=== PATIENT | male | born 1980 | race African-American/Black ===

== ENCOUNTER 2019-04-20 14:06 | Emergency (ER) | payer SELFPAY | END 2019-04-20 16:32 | disposition home or self-care (01) | LOC: ERS 14:06 | DX: K64.4 Residual hemorrhoidal skin tags (principal); Z71.6 Tobacco abuse counseling | CPT/HCPCS: 99406 ==

== ENCOUNTER 2019-07-07 09:58 | Emergency (ER) | payer SELFPAY ==
[2019-07-07] MEDS ORDERED: Ketorolac Tromethamine 30 MG/ML VIAL ONE (10:57)
== END 2019-07-07 11:24 | disposition home or self-care (01) ==
LOC: ERS 09:58
DX: K64.4 Residual hemorrhoidal skin tags (principal); I10 Essential (primary) hypertension; F17.210 Nicotine dependence, cigarettes, uncomplicated
CPT/HCPCS: 96372; 99283; J1885

== ENCOUNTER 2019-08-07 19:08 | Emergency (ER) | payer SELFPAY ==
[2019-08-07 20:34] LABS: Syphilis Antibody Nonreactive (Nonreactive); Syphilis Antibody Index 0.05 S/CO (<1.00 Non-Reactive)
== END 2019-08-07 20:49 | disposition home or self-care (01) ==
LOC: ERS 19:08
DX: L30.9 Dermatitis, unspecified (principal); E03.9 Hypothyroidism, unspecified; I10 Essential (primary) hypertension; F17.210 Nicotine dependence, cigarettes, uncomplicated
CPT/HCPCS: 36415; 86780; 99281

== ENCOUNTER 2020-04-04 12:27 | Emergency (ER) | payer SELFPAY ==
--- NOTE | 2020-04-04 14:50 | CT ---
CT LUMBAR SPINE WITHOUT CONTRAST: Indications: Low back pain. Difficulty walking. FINDINGS: Lumbar vertebrae maintain normal height and alignment. There is no evidence of spondylolisthesis or s pondylolysis. The disc spaces are normally preserved throughout the lumbar spine. L1-2: No significant disc bulge. No central canal or foraminal stenosis. L2-3: Mild disc bulge. No central canal or foraminal stenosis. L3-4: Mild disc bulge abuts the thecal sac. Mild facet hypertrophy. Mild central canal stenosis. L4-5: Mild disc bulge. Mild facet arthrosis and hypertrophy. Mild central canal stenosis. L5-S1: Mild disc bulge. Congenitially smaller thecal sac. No significant central canal or foraminal s tenosis. IMPRESSION: No evidence of significant disc bulge or protrusion. 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 POS: AGW
[2020-04-04] MEDS ORDERED: HYDROcodone/Acetaminophen 5/325 mg Tablet ONE (15:39)
[2020-04-04] MEDS ORDERED: Azithromycin 250 MG TAB ONE (15:41)
[2020-04-04] MEDS ORDERED: Ketorolac Tromethamine 30 MG/ML VIAL ONE (15:41)
[2020-04-04] MEDS ORDERED: cefTRIAXone\\ROCEPHIN 250 MG VIAL ONE (15:41)
[2020-04-04] MEDS ORDERED: Lidocaine 1% PF 5 ML VIAL ONE (15:41)
[2020-04-04 16:16] LABS: Bacteria/HPF None Seen HPF (None Seen); Bilirubin Negative (Negative); Blood, Urine Negative (Negative); Clarity Clear (Clear); Glucose, Urine (Dipstick) Normal (Negative); Leukocyte 75 Leu/uL (Negative); Nitrite Negative (Negative); Protein, Urine (Dipstick) Negative (Neg-Trace); RBC/HPF 0-3 HPF (0-3); Squamous Epithelial 0-3 HPF (0-3)
[2020-04-05 21:12] LABS: Chlam.trachomatis by PCR,Urine DETECTED (NotDetected)
== END 2020-04-04 17:32 | disposition home or self-care (01) ==
LOC: ERS 12:27
DX: M46.1 Sacroiliitis, not elsewhere classified (principal); E03.9 Hypothyroidism, unspecified; I10 Essential (primary) hypertension; F17.210 Nicotine dependence, cigarettes, uncomplicated; Z79.899 Other long term (current) drug therapy
CPT/HCPCS: 72131; 81003; 81015; 87491; 87591; 96372; J0696; J1885; J2001

== ENCOUNTER 2020-04-29 14:47 | Emergency (ER) | payer SELFPAY ==
[2020-04-29 16:28] LABS: Bacteria/HPF None Seen HPF (None Seen); Bilirubin Negative (Negative); Blood, Urine Negative (Negative); Clarity Clear (Clear); Glucose, Urine (Dipstick) Normal (Negative); Ketone, Urine Negative (Negative); Leukocyte 25 Leu/uL (Negative); Nitrite Negative (Negative); Protein, Urine (Dipstick) Negative (Neg-Trace); RBC/HPF 0-3 HPF (0-3); Specific Gravity, Urine 1.017 (1.002-1.036); Squamous Epithelial 0-3 HPF (0-3); Urobilinogen Normal mg/dL (Less than 2); WBC/HPF 0-3 HPF (0-3); pH, Urine 6.5 (5.0-9.0)
[2020-04-30 16:06] LABS: Chlam.trachomatis by PCR,Urine Not Detected (NotDetected)
== END 2020-04-29 18:22 | disposition home or self-care (01) ==
LOC: ERS 14:47
DX: M54.16 Radiculopathy, lumbar region (principal); M79.89 Other specified soft tissue disorders; M25.532 Pain in left wrist; E03.9 Hypothyroidism, unspecified; I10 Essential (primary) hypertension; F17.210 Nicotine dependence, cigarettes, uncomplicated; Z20.2 Contact with and (suspected) exposure to infections with a predominantly sexual mode of transmission
CPT/HCPCS: 81003; 81015; 87491; 87591; 99283

== ENCOUNTER 2020-06-17 08:53 | Emergency (ER) | payer BC ==
[2020-06-17] MEDS ORDERED: Ketorolac Tromethamine 30 MG/ML VIAL ONE ×2 (10:03→10:07)
== END 2020-06-17 11:30 ==
LOC: ERS 08:53
DX: M25.572 Pain in left ankle and joints of left foot (principal); E03.9 Hypothyroidism, unspecified; I10 Essential (primary) hypertension; F17.210 Nicotine dependence, cigarettes, uncomplicated
CPT/HCPCS: 96372; J1885

== ENCOUNTER 2020-11-16 21:09 | Emergency (ER) | payer BC ==
[2020-11-16] MEDS ORDERED: Ketorolac Tromethamine 30 MG/ML VIAL ONE (22:07)
[2020-11-16] MEDS ORDERED: Lidocaine 1% (PF) 30 ML VIAL ONE ×2 (22:07→22:09)
--- NOTE | 2020-11-16 22:27 | RAD ---
LEFT HAND 3 VIEWS: Date: 11/16/2020 HISTORY: Hand injury. FINDINGS: There is dislocation at the interphalangeal joint of the thumb. I do not see an associated fracture. IMPRESSION: Dislocation of the interphalangeal joint of the thumb. POS: OFF
--- NOTE | 2020-11-16 22:28 | RAD ---
PORTABLE CHEST: Date: 11/16/2020 HISTORY: Injury with diffuse pain. FINDINGS: Heart size and mediastinum are within normal limits. The lungs are clear of infiltrates. No rib fract ures are seen. Deformity to the distal end of the clavicle appears to be related to an old fracture. IMPRESSION: No active intrathoracic disease. POS: OFF
--- NOTE | 2020-11-16 22:35 | CT ---
CT OF FACIAL BONES PERFORMED WITHOUT CONTRAST ENHANCEMENT: Date: 11/16/2020 HISTORY: Soft tissue swelling left eye and left side of face. FINDINGS: The nasal bone and zygomatic arches are intact. There is air within the soft tissues in the region of the left orbit. These include air both in the extraconal and intraconal fat. This is associated with a fairly subtle fracture involving the posterior most aspect of the left orbit along the medial wall . Fracture involves the junction of the floor and the medial wall. There is a small air fluid level w ithin the adjacent sinus. Lateral peñaloza of both orbits are intact and maxillary sinus shows no fractu re. Mandible is intact and condyles are in normal position. IMPRESSION: Fairly prominent intra and extraconal air within the left orbit. This is associated with a fairly sma ll fracture involving the posterior most aspect of the orbit. This is along the junction of the poste rior wall and medial wall of the orbit near the optic canal. POS: OFF
== END 2020-11-16 23:16 | disposition home or self-care (01) ==
LOC: EEVIPCON 21:09 → ERS 21:09
DX: S02.85XA Fracture of orbit, unspecified, initial encounter for closed fracture (principal); S01.511A Laceration without foreign body of lip, initial encounter; E03.9 Hypothyroidism, unspecified; I10 Essential (primary) hypertension; F17.210 Nicotine dependence, cigarettes, uncomplicated; W50.1XXA Accidental kick by another person, initial encounter; Y92.149 Unspecified place in prison as the place of occurrence of the external cause
CPT/HCPCS: 12011; 70486; 71045; 96372; J1885; J2001